=== PATIENT | male | born 1945 | race Caucasian/White ===

== ENCOUNTER → 2023-06-05 18:17 | Outpatient (CLI) | payer MEDICARE, OTHER, SELFPAY ==
--- NOTE | 2023-06-05 | DI.MRI.S_ITS ---
PROCEDURE: MR ANKLE RT WO CON INDICATIONS: Posterior tibial tendinitis, right leg Pain TECHNIQUE: Noncontrast sagittal T1 spin echo and T2 fast spin echo with fat saturation, axial proton density fast spin echo and T2 fast spin echo with fat saturation, coronal T1 spin echo and T2 fast spin echo with fat saturation through the ankle/hindfoot. COMPARISON: None. FINDINGS: Image quality: Excellent. Bones and joints: No acute trabecular bone injury or fracture. No hindfoot coalitions. No osteochondral injuries of the talar dome. Focal subchondral cystic changes at the central tibial plafond. Medial structures: The deltoid ligament and the spring ligament complex are intact. Moderate distal posterior tibialis tenosynovitis. No tendon tearing is seen. The flexor digitorum longus and flexor hallucis longus tendons are intact. The posterior tibial neurovascular bundle appears normal within the tarsal tunnel, without extrinsic mass effect. Lateral structures: Remote prior low-grade sprain of the calcaneofibular ligament. The anterior talofibular and posterior talofibular ligaments are intact. The anterior and posterior tibiofibular ligaments are intact. The peroneus longus and brevis tendons demonstrate mild tendinosis. The sinus tarsi demonstrates normal fatty signal. Anterior structures: The tibialis anterior, extensor hallucis longus, and extensor digitorum longus tendons appear intact. Posterior and plantar structures: Achilles tendon is intact. Trace edema is seen surrounding the proximal plantar fascia that may indicate acute fasciitis. No abductor digiti minimi muscle atrophy to suggest Uribe neuropathy. IMPRESSION: 1. Moderate distal posterior tibialis tenosynovitis. No significant tendon tearing. 2. Remote prior grade 1 sprain of the calcaneofibular ligament. 3. Mild peroneus brevis and longus tendinosis. 4. Focal degenerative subchondral cystic changes at the central tibial plafond and. 5. Trace soft tissue edema surrounding the proximal plantar fascia may indicate acute fasciitis. No focal fascial tearing is seen. Approved by: Jed Marie M.D. on 06/08/2023 at 12:59
== END ==
PROVIDERS: Family Provider Physician Assistant; PCP Physician Assistant; Referring Provider Podiatrist; Visit Provider Podiatrist
DX: M76.821 Posterior tibial tendinitis, right leg (principal); S93.411A Sprain of calcaneofibular ligament of right ankle, initial encounter; R26.2 Difficulty in walking, not elsewhere classified; M79.671 Pain in right foot
CPT/HCPCS: 73721